=== PATIENT | male | born 1970 | race Caucasian/White ===

== ENCOUNTER 2019-04-27 17:28 | Emergency (ER) | payer OTHER ==
[~2019-04-27] VITALS: Ht 182.9 cm; Wt 91.6 kg
[~2019-04-27 17:28] MED LIST: COLACE100 MG PO; LIDODERM 5%1 PATCH TOP; MOM PO; NICOTINE TRANSD21 M1 TD; NOHOMEMEDICATIONS; PERCOCET 5-3251 EACH PO; PROTONIX40 M2 PO; XANAX 0.5 MG0.5 M1 PO
[2019-04-27] MEDS ORDERED: FLONASE 0.05%50 MCG NASAL (18:50)
[2019-04-27 19:20] VITALS: BP 129/78
== END 2019-04-27 19:20 | disposition home or self-care (01) ==
LOC: ER 17:28
DX: J06.9 Acute upper respiratory infection, unspecified (principal); K02.9 Dental caries, unspecified; R51 Headache; K21.9 Gastro-esophageal reflux disease without esophagitis; Z88.6 Allergy status to analgesic agent

== ENCOUNTER 2021-07-10 10:29 | Emergency (ER) | payer OTHER ==
[~2021-07-10] VITALS: Ht 182.9 cm; Wt 79.4 kg
[~2021-07-10 10:29] MED LIST changes: +FLONASE 0.05%50 MCG NASAL
[2021-07-10] MEDS ORDERED: HYDROCODON-ACE1 EAC7 PO ×2 (10:38→11:48)
[2021-07-10 12:06] VITALS: BP 140/98
== END 2021-07-10 12:08 | disposition home or self-care (01) ==
LOC: ER 10:29
DX: S42.201A Unspecified fracture of upper end of right humerus, initial encounter for closed fracture (principal); K21.9 Gastro-esophageal reflux disease without esophagitis; Z79.891 Long term (current) use of opiate analgesic; Z79.899 Other long term (current) drug therapy; Z88.6 Allergy status to analgesic agent; V19.3XXA Pedal cyclist (driver) (passenger) injured in unspecified nontraffic accident, initial encounter; Y93.89 Activity, other specified; Y92.89 Other specified places as the place of occurrence of the external cause; Y99.8 Other external cause status